=== PATIENT | male | born 1960 | race Caucasian/White ===

== ENCOUNTER → 2016-06-02 | Outpatient (CLI) | payer MEDICAID | LOC: MW.CHFP 15:14 | PROVIDERS: ATTEND Emergency Medicine | DX: M54.9 Dorsalgia, unspecified (principal) | CPT/HCPCS: 81001 ==

== ENCOUNTER → 2016-06-27 | Outpatient (CLI) | payer MEDICAID ==
[2016-06-27 09:01] LABS: CHLORIDE,CL 107 mmol/L (98-110); SODIUM,NA 140 mmol/L (136-146)
== END | disposition home or self-care (01) ==
LOC: MW.CHFP 08:19
PROVIDERS: ATTEND Emergency Medicine
DX: I10 Essential (primary) hypertension (principal); E11.69 Type 2 diabetes mellitus with other specified complication; E78.5 Hyperlipidemia, unspecified; E11.9 Type 2 diabetes mellitus without complications; Z79.4 Long term (current) use of insulin
CPT/HCPCS: 36415; 80048; 83036

== ENCOUNTER 2017-07-05 21:16 | Emergency (ER) | payer MEDICAID ==
[2017-07-05] MEDS ORDERED: Sodium Chloride 0.9% 1,000 ML IV ONE (21:33)
--- NOTE | 2017-07-05 21:33 | EDM.PDOC ---
ED HPI GENERAL MEDICAL PROBLEM - General Chief Complaint: Cardiovascular Problem Stated Complaint: DIZZY/LIGHTHEADED Time Seen by Provider: 07/05/17 21:28 - History of Present Illness INITIAL COMMENTS - FREE TEXT/NARRATIVE: HISTORY AND PHYSICAL: History of present illness: Patient 56-year-old male presents with a concern of dizziness is somewhat vague at this off-and-on since last Sunday he has a scheduled appointment doesn't feel he could wait he denies chest pain shortness of breath palpitations or other concern. Review of systems: As per history of present illness and below otherwise all systems reviewed and negative. Past medical history: As per history of present illness and as reviewed below otherwise noncontributory. Surgical history: As per history of present illness and as reviewed below otherwise noncontributory. Social history: No reported history of drug or alcohol abuse. Family history: As per history of present illness and as reviewed below otherwise noncontributory. Physical exam: HEENT: Atraumatic, normocephalic, pupils reactive, negative for conjunctival pallor or scleral icterus, mucous membranes moist, throat clear, neck supple, nontender, trachea midline. Lungs: Clear to auscultation, breath sounds equal bilaterally, chest nontender. Heart: S1S2, regular, negative for clicks, rubs, or JVD. Abdomen: Soft, nondistended, nontender. Negative for masses or hepatosplenomegaly. Negative for costovertebral tenderness. Pelvis: Stable nontender. Genitourinary: Deferred. Rectal: Deferred. Extremities: Atraumatic, negative for cords or calf pain. Neurovascular unremarkable. Neuro: Awake, alert, oriented. Cranial nerves II through XII unremarkable. Cerebellum unremarkable. Motor and sensory unremarkable throughout. Exam nonfocal. Diagnostics: CBC CMP PT/INR troponin chest x-ray EKG CT brain orthostatic vital signs Therapeutics: Saline 1 L bolus Impression: # 1 intermittent dizziness etiology determined Definitive disposition and diagnosis as appropriate pending reevaluation and review of above. - Related Data Allergies Allergy/AdvReac Type Severity Reaction Status Date / Time No Known Allergies Allergy Verified 07/05/17 21:29 Home Meds: Home Meds Insulin Glarg,Human.Rec.Analog [LantUS] 40 unit SUBCUT BEDTIME 09/27/13 [History ] Novalog Insulin 1 unit SQ ASDIRECTED 10/25/14 [History] Cholestyramine/Sucrose [Cholestyramine Packet] 4 gm PO DAILY 11/05/15 [History] Mesalamine [Lialda] 4 tab PO DAILY 03/19/16 [History] Past Medical History HEENT History: Reports: None Cardiovascular History: Reports: Heart Murmur, High Cholesterol Gastrointestinal History: Reports: Other (See Below) Other Gastrointestinal History: ulcerative colitis, c diff Endocrine/Metabolic History: Reports: Diabetes, Type II - Infectious Disease History Infectious Disease History: Reports: C-Difficile, Chicken Pox - Past Surgical History HEENT Surgical History: Reports: Naso-Sinus Surgery, Tonsillectomy Social & Family History - Family History Family Medical History: Noncontributory Cardiac: Reports: High Cholesterol, Hypertension, [place] Endocrine/Metabolic: Reports: Diabetes, type II - Tobacco Use Smoking Status *Q: Former Smoker Years of Tobacco use: 15 Used Tobacco, but Quit: Yes Month/Year Tobacco Last Used: 120 Second Hand Smoke Exposure: No - Caffeine Use Caffeine Use: Reports: Coffee, Tea Caffeine Use Comment: 2-3 cups/day - Alcohol Use Days Per Week of Alcohol Use: 0 - Recreational Drug Use Recreational Drug Use: No Drug Use in Last 12 Months: No Recreational Drug Type: Reports: Marijuana/Hashish ED ROS GENERAL - Review of Systems Review Of Systems: ROS reveals no pertinent complaints other than HPI. ED EXAM, GENERAL - Physical Exam Exam: See Below (The dictation) Course - Vital Signs Last Recorded V/S: Last Vital Signs Temp 37.3 C 07/05/17 21:29 Pulse 104 H 07/05/17 21:29 Resp 18 07/05/17 21:29 BP 140/99 H 07/05/17 21:29 Pulse Ox 98 07/05/17 21:29 - Orders/Labs/Meds Orders: Active Orders 24 hr Category Date Time Status EKG Documentation Completion [RC] STAT Care 07/05/17 21:28 Active Pulse Oximetry [RC] ASDIRECTED Care 07/05/17 21:28 Active Chest 1V Frontal [CR] Stat Exams 07/05/17 21:29 Taken Head wo Cont [CT] Stat Exams 07/05/17 21:31 Taken DRUG SCREEN, URINE [URCHEM] Stat Lab 07/05/17 21:10 Ordered Labs: Laboratory Tests 07/05/17 07/05/17 07/05/17 Range/Units 21:10 21:38 21:38 WBC 6.93 (4.0-11.0) K/uL RBC 5.12 (4.50-5.90) M/uL Hgb 15.1 (13.0-17.0) g/dL Hct 43.4 (38.0-50.0) % MCV 84.8 (80.0-98.0) fL MCH 29.5 (27.0-32.0) pg MCHC 34.8 (31.0-37.0) g/dL RDW Std Deviation 39.0 (28.0-62.0) fl RDW Coeff of Christina 13 (11.0-15.0) % Plt Count 199 (150-400) K/uL MPV 10.00 (7.40-12.00) fL Neut % (Auto) 55.1 (48.0-80.0) % Lymph % (Auto) 29.9 (16.0-40.0) % Galax % (Auto) 11.8 (0.0-15.0) % Eos % (Auto) 2.9 (0.0-7.0) % Baso % (Auto) 0.3 (0.0-1.5) % Neut # (Auto) 3.8 (1.4-5.7) K/uL Lymph # (Auto) 2.1 (0.6-2.4) K/uL Galax # (Auto) 0.8 (0.0-0.8) K/uL Eos # (Auto) 0.2 (0.0-0.7) K/uL Baso # (Auto) 0.0 (0.0-0.1) K/uL Nucleated RBC % 0.0 /100WBC Nucleated RBCs # 0 K/uL INR 1.00 Sodium (136-148) mmol/L Potassium (3.5-5.1) mmol/L Chloride (98-107) mmol/L Carbon Dioxide (21.0-32.0) mmol/L BUN (7.0-18.0) mg/dL Creatinine (0.8-1.3) mg/dL Est Cr Clr Drug Dosing mL/min Estimated GFR (MDRD) ml/min Glucose (74-106) mg/dL Calcium (8.5-10.1) mg/dL Total Bilirubin (0.2-1.0) mg/dL AST (15-37) IU/L ALT (14-63) IU/L Alkaline Phosphatase (46-116) U/L Troponin I (0.000-0.056) ng/mL Total Protein (6.4-8.2) g/dL Albumin (3.4-5.0) g/dL Globulin (2.0-3.5) g/dL Albumin/Globulin Ratio (1.3-2.8) Urine Opiates Screen NEGATIVE (NEGATIVE) Ur Oxycodone Screen NEGATIVE (NEGATIVE) Urine Methadone Screen NEGATIVE (NEGATIVE) Ur Barbiturates Screen NEGATIVE (NEGATIVE) Ur Phencyclidine Scrn NEGATIVE (NEGATIVE) Ur Amphetamine Screen NEGATIVE (NEGATIVE) U Methamphetamines Scrn NEGATIVE (NEGATIVE) U Benzodiazepines Scrn NEGATIVE (NEGATIVE) U Cocaine Metab Screen NEGATIVE (NEGATIVE) U Marijuana (THC) Screen NEGATIVE (NEGATIVE) 07/05/17 Range/Units 21:38 WBC (4.0-11.0) K/uL RBC (4.50-5.90) M/uL Hgb (13.0-17.0) g/dL Hct (38.0-50.0) % MCV (80.0-98.0) fL MCH (27.0-32.0) pg MCHC (31.0-37.0) g/dL RDW Std Deviation (28.0-62.0) fl RDW Coeff of Christina (11.0-15.0) % Plt Count (150-400) K/uL MPV (7.40-12.00) fL Neut % (Auto) (48.0-80.0) % Lymph % (Auto) (16.0-40.0) % Galax % (Auto) (0.0-15.0) % Eos % (Auto) (0.0-7.0) % Baso % (Auto) (0.0-1.5) % Neut # (Auto) (1.4-5.7) K/uL Lymph # (Auto) (0.6-2.4) K/uL Galax # (Auto) (0.0-0.8) K/uL Eos # (Auto) (0.0-0.7) K/uL Baso # (Auto) (0.0-0.1) K/uL Nucleated RBC % /100WBC Nucleated RBCs # K/uL INR Sodium 142 (136-148) mmol/L Potassium 3.6 (3.5-5.1) mmol/L Chloride 106 (98-107) mmol/L Carbon Dioxide 24.8 (21.0-32.0) mmol/L BUN 19 H (7.0-18.0) mg/dL Creatinine 1.0 (0.8-1.3) mg/dL Est Cr Clr Drug Dosing 76.20 mL/min Estimated GFR (MDRD) > 60.0 ml/min Glucose 92 (74-106) mg/dL Calcium 8.8 (8.5-10.1) mg/dL Total Bilirubin 0.5 (0.2-1.0) mg/dL AST 12 L (15-37) IU/L ALT 26 (14-63) IU/L Alkaline Phosphatase 89 (46-116) U/L Troponin I < 0.050 (0.000-0.056) ng/mL Total Protein 7.2 (6.4-8.2) g/dL Albumin 4.0 (3.4-5.0) g/dL Globulin 3.2 (2.0-3.5) g/dL Albumin/Globulin Ratio 1.3 (1.3-2.8) Urine Opiates Screen (NEGATIVE) Ur Oxycodone Screen (NEGATIVE) Urine Methadone Screen (NEGATIVE) Ur Barbiturates Screen (NEGATIVE) Ur Phencyclidine Scrn (NEGATIVE) Ur Amphetamine Screen (NEGATIVE) U Methamphetamines Scrn (NEGATIVE) U Benzodiazepines Scrn (NEGATIVE) U Cocaine Metab Screen (NEGATIVE) U Marijuana (THC) Screen (NEGATIVE) Meds: Medications Discontinued Medications Generic Name Dose Route Start Last Admin Trade Name Freq PRN Reason Stop Dose Admin Sodium Chloride 1,000 mls @ 999 mls/hr 07/05/17 21:33 07/05/17 21:54 Normal Saline IV 07/05/17 22:33 999 mls/hr STAT ONE Administration Departure - Departure Time of Disposition: 23:22 Disposition: Home, Self-Care 01 Condition: Good Clinical Impression: Dizziness Referrals: Yosvany Waller MD [Primary Care Provider] - Forms: ED Department Discharge Additional Instructions: The following information is given to patients seen in the emergency department who are being discharged to home. This information is to outline your options for follow-up care. We provide all patients seen in our emergency department with a follow-up referral. The need for follow-up, as well as the timing and circumstances, are variable depending upon the specifics of your emergency department visit. If you don't have a primary care physician on staff, we will provide you with a referral. We always advise you to contact your personal physician following an emergency department visit to inform them of the circumstance of the visit and for follow-up with them and/or the need for any referrals to a consulting specialist. The emergency department will also refer you to a specialist when appropriate. This referral assures that you have the opportunity for followup care with a specialist. All of these measure are taken in an effort to provide you with optimal care, which includes your followup. Under all circumstances we always encourage you to contact your private physician who remains a resource for coordinating your care. When calling for followup care, please make the office aware that this follow-up is from your recent emergency room visit. If for any reason you are refused follow-up, please contact the [facility] emergency department at and asked to speak to the emergency department charge nurse. Follow-up primary medical doctor: Schedule routine appointment return as needed as discussed - My Orders Last 24 Hours: My Active Orders 07/05/17 21:10 DRUG SCREEN, URINE [URCHEM] Stat 07/05/17 21:28 EKG Documentation Completion [RC] STAT Pulse Oximetry [RC] ASDIRECTED 07/05/17 21:29 Chest 1V Frontal [CR] Stat 07/05/17 21:31 Head wo Cont [CT] Stat - Assessment/Plan Last 24 Hours: My Active Orders 07/05/17 21:10 DRUG SCREEN, URINE [URCHEM] Stat 07/05/17 21:28 EKG Documentation Completion [RC] STAT Pulse Oximetry [RC] ASDIRECTED 07/05/17 21:29 Chest 1V Frontal [CR] Stat 07/05/17 21:31 Head wo Cont [CT] Stat
[2017-07-05 22:13] LABS: CHLORIDE,CL 106 mmol/L (98-107); SODIUM,NA 142 mmol/L (136-148)
[2017-07-05 23:44] VITALS: BP 140/90
--- NOTE | 2017-07-06 16:05 | CT ---
EXAM DATE: 07/05/17 PATIENT'S AGE: 56 Patient: MELYSSA HALE Facility: [place], [place] Site . Site : 1960 Study: CT Head WO CONT [id number] 10:19:09 PM Ordering Physician: Dirk Cross Final Report: INDICATION: Dizziness for 1 week TECHNIQUE: Head CT without contrast. COMPARISON: November 11, 2015 FINDINGS: CSF spaces: Within normal limits for age. Brain parenchyma: Normal graham-white junction. No sign of mass, hemorrhage, or midline shift. Skull base and calvarium: The visualized paranasal sinuses and mastoid air cells demonstrate no acute or significant findings. The visualized orbits are grossly unremarkable. No skull fractures. IMPRESSION: No acute abnormality. Please note that all CT scans at this facility use dose modulation, iterative reconstruction, and/or weight-based dosing when appropriate to reduce radiation dose to as low as reasonably achievable. Dictated by Jessica Solorzano MD @ Jul 05 2017 10:30PM (Electronic Signature) Report Signed by Proxy. MTDD
--- NOTE | 2017-07-06 16:07 | CR ---
EXAM DATE: 07/05/17 PATIENT'S AGE: 56 Patient: MELYSSA HALE Facility: [place], [place] Site . Site : 1960 Study: XRay Chest [id number]/19/2018 10:25:02 PM Ordering Physician: Dirk Cross Final Report: INDICATION: Lightheaded, dizziness. TECHNIQUE: Chest radiograph 1 view COMPARISON: 05/25/2015. FINDINGS: Cardiovascular and mediastinum: The heart silhouette is normal in size and morphology. The mediastinum is normal in appearance. Lungs and pleural spaces: Both lungs are unremarkable in appearance. No sign of pleural effusion seen. No pneumothorax is identified. Bones and soft tissues: No significant findings. IMPRESSION: 1. No acute cardiopulmonary disease is seen. Dictated by aCrmelo Oleary MD @ 07/05/2017 10:29:12 PM Dictated by: Carmelo Oleary MD @ 07/05/2017 22:29:16 (Electronic Signature) Report Signed by Proxy. [facility] HOSPITALMaycol
== END 2017-07-05 23:41 | disposition home or self-care (01) ==
LOC: MW.ED 21:16
DX: R42 Dizziness and giddiness (principal); E11.9 Type 2 diabetes mellitus without complications; Z79.899 Other long term (current) drug therapy; Z79.4 Long term (current) use of insulin; Z87.891 Personal history of nicotine dependence
CPT/HCPCS: 36415; 70450; 71045; 80053; 80305; 84484; 85025; 85610; 93005; 96360; 99284; J7040; 99283

== ENCOUNTER 2018-06-03 01:35 | Emergency (ER) | payer MEDICAID ==
[2018-06-03] MEDS ORDERED: Sodium Chloride 0.9% 2.5 ML Syringe FLUSH PRN (01:52)
[2018-06-03] MEDS ORDERED: Sodium Chloride 0.9% 10 ML Syringe FLUSH PRN (01:52)
[2018-06-03] MEDS ORDERED: Sodium Chloride 0.9% 1,000 ML IV ONE (01:53)
[2018-06-03] MEDS ORDERED: Ondansetron 4 MG/2 ML SDV IVPUSH ONE (01:54)
--- NOTE | 2018-06-03 01:54 | EDM.PDOC ---
ED HPI GENERAL MEDICAL PROBLEM - General Chief Complaint: Gastrointestinal Problem Stated Complaint: STOMACH PAIN Time Seen by Provider: 06/03/18 01:52 - History of Present Illness INITIAL COMMENTS - FREE TEXT/NARRATIVE: HISTORY AND PHYSICAL: History of present illness: Patient 57-year-old white male presents with a concern of vomiting and generalized weakness suspend 1 day he denies fever chills diarrhea or other concern. Review of systems: As per history of present illness and below otherwise all systems reviewed and negative. Past medical history: As per history of present illness and as reviewed below otherwise noncontributory. Surgical history: As per history of present illness and as reviewed below otherwise noncontributory. Social history: No reported history of drug or alcohol abuse. Family history: As per history of present illness and as reviewed below otherwise noncontributory. Physical exam: HEENT: Atraumatic, normocephalic, pupils reactive, negative for conjunctival pallor or scleral icterus, mucous membranes dry throat clear, neck supple, nontender, trachea midline. Lungs: Clear to auscultation, breath sounds equal bilaterally, chest nontender. Heart: S1S2, regular, negative for clicks, rubs, or JVD. Abdomen: Soft, nondistended, nontender. Negative for masses or hepatosplenomegaly. Negative for costovertebral tenderness. Pelvis: Stable nontender. Genitourinary: Deferred. Rectal: Deferred. Extremities: Atraumatic, negative for cords or calf pain. Neurovascular unremarkable. Neuro: Awake, alert, oriented. Cranial nerves II through XII unremarkable. Cerebellum unremarkable. Motor and sensory unremarkable throughout. Exam nonfocal. Diagnostics: CBC CMP lipase EKG Therapeutics: Saline 1 L bolus Zofran 4 mg IV Impression: #1 vomiting with dehydration Definitive disposition and diagnosis as appropriate pending reevaluation and review of above. epigastric Pain Score (Numeric/FACES): 8 - Related Data Allergies Allergy/AdvReac Type Severity Reaction Status Date / Time animal dander Allergy sneezing/watery Verified 01/22/18 12:08 eyes Rssjpoz-Vet-Per Reductase Allergy Leg Cramps Verified 01/22/18 12:08 Inhibitor Home Meds: Home Meds Insulin Glarg,Human.Rec.Analog [LantUS] 40 unit SUBCUT BEDTIME 09/27/13 [History ] Novalog Insulin 1 unit SQ ASDIRECTED 10/25/14 [History] Mesalamine [Lialda] 2 tab PO DAILY 03/19/16 [History] Cholestyramine (With Sugar) [Cholestyramine Powder] 1 mg PO DAILY 07/05/17 [ History] Enalapril [Vasotec] 2.5 mg PO DAILY 07/05/17 [History] Past Medical History HEENT History: Reports: None Cardiovascular History: Reports: Heart Murmur, High Cholesterol Respiratory History: Reports: None Gastrointestinal History: Reports: Other (See Below) Other Gastrointestinal History: ulcerative colitis, c diff Genitourinary History: Reports: None Musculoskeletal History: Reports: None Neurological History: Reports: None Psychiatric History: Reports: None Endocrine/Metabolic History: Reports: Diabetes, Type II Hematologic History: Reports: None Immunologic History: Reports: None Oncologic (Cancer) History: Reports: None Dermatologic History: Reports: None - Infectious Disease History Infectious Disease History: Reports: C-Difficile, Chicken Pox - Past Surgical History HEENT Surgical History: Reports: Naso-Sinus Surgery, Tonsillectomy Social & Family History - Family History Family Medical History: Noncontributory Cardiac: Reports: High Cholesterol, Hypertension, [place] Endocrine/Metabolic: Reports: Diabetes, type II - Caffeine Use Caffeine Use: Reports: Coffee, Tea Caffeine Use Comment: 2-3 cups/day ED ROS GENERAL - Review of Systems Review Of Systems: ROS reveals no pertinent complaints other than HPI. ED EXAM, GENERAL - Physical Exam Exam: See Below (See dictation) Course - Vital Signs Last Recorded V/S: Last Vital Signs Temp 36.4 C 06/03/18 01:40 Pulse 137 H 06/03/18 01:40 Resp 18 06/03/18 01:40 BP 161/100 H 06/03/18 01:40 Pulse Ox 94 L 06/03/18 01:40 Departure - Departure Time of Disposition: 01:54 Disposition: Home, Self-Care 01 Condition: Good Clinical Impression: Vomiting, Dehydration - Discharge Information Referrals: PCP,None [Primary Care Provider] - Additional Instructions: The following information is given to patients seen in the emergency department who are being discharged to home. This information is to outline your options for follow-up care. We provide all patients seen in our emergency department with a follow-up referral. The need for follow-up, as well as the timing and circumstances, are variable depending upon the specifics of your emergency department visit. If you don't have a primary care physician on staff, we will provide you with a referral. We always advise you to contact your personal physician following an emergency department visit to inform them of the circumstance of the visit and for follow-up with them and/or the need for any referrals to a consulting specialist. The emergency department will also refer you to a specialist when appropriate. This referral assures that you have the opportunity for followup care with a specialist. All of these measure are taken in an effort to provide you with optimal care, which includes your followup. Under all circumstances we always encourage you to contact your private physician who remains a resource for coordinating your care. When calling for followup care, please make the office aware that this follow-up is from your recent emergency room visit. If for any reason you are refused follow-up, please contact the [facility] emergency department at and asked to speak to the emergency department charge nurse. Push fluids clear liquids as directed avoid dairy 72 hours follow-up primary medical doctor as needed as discussed and return as needed as discussed
[2018-06-03 02:52] LABS: CHLORIDE,CL 99 mmol/L (98-107); SODIUM,NA 137 mmol/L (136-148)
[2018-06-03 04:15] VITALS: BP 141/88
== END 2018-06-03 04:15 | disposition home or self-care (01) ==
LOC: MW.ED 01:35
DX: E86.0 Dehydration (principal); E78.00 Pure hypercholesterolemia, unspecified; E11.9 Type 2 diabetes mellitus without complications; Z88.8 Allergy status to other drugs, medicaments and biological substances; Z79.899 Other long term (current) drug therapy; Z79.4 Long term (current) use of insulin; R11.10 Vomiting, unspecified
CPT/HCPCS: 80053; 83690; 85025; 93005; 96360; 99284; J7040; 99283

== ENCOUNTER 2020-03-27 20:48 | Emergency (ER) | payer MEDICAID ==
[2020-03-27 21:05] VITALS: PULSE 90
--- NOTE | 2020-03-27 21:10 | EDM.PDOC ---
ED HPI GENERAL MEDICAL PROBLEM - General Chief Complaint: Upper Extremity Injury/Pain Stated Complaint: RIGHT SHOULDER PROBLEM Time Seen by Provider: 03/27/20 20:59 - History of Present Illness INITIAL COMMENTS - FREE TEXT/NARRATIVE: HISTORY AND PHYSICAL: History of present illness: This is a 59-year-old gentleman who presents ER today complaining of pain to his right shoulder that occurred while he was washing dishes. Patient reports that he had pain to his right shoulder that was acute in onset while he was washing dishes. Patient denies any loss of range of motion however he does have pain when he abducts his shoulder. Patient reports there is some slight bruising in that area that is new as well. Patient has any other symptomatology. Patient has any recent fevers, shakes, chills, nausea, vomiting, diarrhea, dysuria, frequency, urgency. Patient denies any direct trauma other than repetitive use. Review of systems: As per history of present illness and below otherwise all systems reviewed and negative. Past medical history: As per history of present illness and as reviewed below otherwise noncontributory. Surgical history: As per history of present illness and as reviewed below otherwise noncontr ibutory. Social history: No reported history of drug or alcohol abuse. Family history: As per history of present illness and as reviewed below otherwise noncontributory. Physical exam: Constitutional: Patient is oriented to person, place, and time. Appears well- developed and well-nourished. No distress. HEENT: Moist mucous membranes Head: Normocephalic and atraumatic Eyes: Right eye exhibits no discharge. Left eye exhibits no discharge. No scleral icterus Neck: Normal range of motion. No tracheal deviation present. Cardiovascular: Normal rate and regular rhythm. Pulmonary: Effort normal, no respiratory distress. Abdominal: No distention Musculoskeletal: Normal range of motion Neurologic: Alert and oriented to person, place and time. Skin: Powderly, warm and dry. Psychiatric: Normal mood and affect. Behavior is normal. Judgment and thought content normal. Nursing note and vital signs have been reviewed Patient's ER physical exam is significant for tenderness to palpation to his right shoulder. There is no step-off or evidence of deformity/dislocation. Patient does have some slight bruising to the right shoulder. No swelling to the joint or effusion identified. Patient has full range of motion intact however he does experience pain with any abduction of the right shoulder. Patient is neurovascular intact otherwise. Patient has good brachial and radial pulses equal bilaterally. Patient has excellent capillary refill. Patient sensation is intact distally. This patient was seen and evaluated during the 2019 SARS-CoV-2 novel coronavirus pandemic period. Community viral transmission is ongoing at time of this encounter and the emergency department is operating under pandemic response procedures. Assessment and plan: Likely rotator cuff tear from overuse. Patient was instructed to rest, ice, Tylenol/ibuprofen for pain. Patient can follow-up with a primary care physician for long-term management assistance and referrals for orthopedics. At this time there is no indication for x-rays. Reassessment at the time of disposition demonstrates that the patient is in no acute distress. The patient has remained stable throughout the entire ED visit and is without objective evidence for acute process requiring urgent intervention or hospitalization. The patient is stable for discharge, counseling is provided as documented above, discussed symptomatic treatment and specific conditions for return. I have spoken with the patient/caregiver and discussed todays findings, in addition to providing specific details for the plan of care. Questions are answered and there is agreement with the plan. Definitive disposition and diagnosis as appropriate pending reevaluation and review of above. - Related Data Allergies Allergy/AdvReac Type Severity Reaction Status Date / Time No Known Allergies Allergy Verified 03/27/20 20:58 Home Meds: Home Meds Insulin Glarg,Human.Rec.Analog [LantUS] 44 unit SUBCUT BEDTIME 09/27/13 [History] Novalog Insulin 0 unit SQ ASDIRECTED 10/25/14 [History] Cholestyramine (With Sugar) [Cholestyramine Powder] 2 mg PO DAILY 07/05/17 [ History] Enalapril [Vasotec] 2.5 mg PO DAILY 07/05/17 [History] Ibuprofen 600 mg PO Q6HR PRN #30 tablet 03/27/20 [Rx] Mesalamine [Lialda] 2 tab PO DAILY 03/27/20 [History] Rosuvastatin [Crestor] 5 mg PO ASDIRECTED 03/27/20 [History] Past Medical History HEENT History: Reports: None Cardiovascular History: Reports: Heart Murmur, High Cholesterol Respiratory History: Reports: None Gastrointestinal History: Reports: Other (See Below) Other Gastrointestinal History: ulcerative colitis, c diff Genitourinary History: Reports: None Musculoskeletal History: Reports: None Neurological History: Reports: None Psychiatric History: Reports: None Endocrine/Metabolic History: Reports: Diabetes, Type II Hematologic History: Reports: None Immunologic History: Reports: None Oncologic (Cancer) History: Reports: None Dermatologic History: Reports: None - Infectious Disease History Infectious Disease History: Reports: C-Difficile, Chicken Pox - Past Surgical History HEENT Surgical History: Reports: Naso-Sinus Surgery, Tonsillectomy Social & Family History - Family History Family Medical History: No Pertinent Family History Cardiac: Reports: High Cholesterol, Hypertension, [place] Endocrine/Metabolic: Reports: Diabetes, type II - Caffeine Use Caffeine Use: Reports: Coffee, Tea Caffeine Use Comment: 2-3 cups/day Review of Systems - Review of Systems Review Of Systems: See Below ED EXAM, GENERAL - Physical Exam Exam: See Below Course - Vital Signs Last Recorded V/S: Last Vital Signs Temp 97.9 F 03/27/20 21:00 Pulse 90 03/27/20 21:00 Resp 18 03/27/20 21:00 BP 172/111 H 03/27/20 21:00 Pulse Ox 95 03/27/20 21:00 - Orders/Labs/Meds Orders: Active Orders 24 hr Category Date Time Status Ibuprofen [Motrin] Med 03/27/20 21:11 Once 600 mg PO ONETIME ONE Medication Orders Ibuprofen (Motrin) 600 mg PO ONETIME ONE Stop: 03/27/20 21:12 Meds: Medications Generic Name Dose Route Start Last Admin Trade Name Freq PRN Reason Stop Dose Admin Ibuprofen 600 mg 03/27/20 21:11 Motrin PO 03/27/20 21:12 ONETIME ONE Departure - Departure Time of Disposition: 21:07 Disposition: Home, Self-Care 01 Condition: Good Clinical Impression: Right shoulder pain Qualifiers: Chronicity: acute Qualified Code(s): M25.511 - Pain in right shoulder Injury of right rotator cuff Qualifiers: Encounter type: initial encounter Qualified Code(s): S46.001A - Unspecified injury of muscle(s) and tendon(s) of the rotator cuff of right shoulder, initial encounter - Discharge Information Prescriptions: Ibuprofen 600 mg PO Q6HR PRN #30 tablet PRN Reason: Pain Instructions: Shoulder Pain, How to Use Cold Therapy, [id number], Rotator Cuff Tear Referrals: Yosvany Waller MD [Primary Care Provider] - Forms: ED Department Discharge Additional Instructions: You were seen and evaluated in the ER today secondary to pain that you are experiencing in her right shoulder that started today. Your pain appears to be most likely secondary to a injury to your rotator cuff in your right shoulder. At this time, no x-rays are indicated. You can assist healing by resting it and not doing things that cause pain or discomfort to your right shoulder. You take Tylenol and ibuprofen as needed for pain. Please make an appointment to see your doctor in the next week for reevaluation and possible referral as needed. The following information is given to patients seen in the emergency department who are being discharged to home. This information is to outline your options for follow-up care. We provide all patients seen in our emergency department with a follow-up referral. The need for follow-up, as well as the timing and circumstances, are variable depending upon the specifics of your emergency department visit. If you don't have a primary care physician on staff, we will provide you with a referral. We always advise you to contact your personal physician following an emergency department visit to inform them of the circumstance of the visit and for follow-up with them and/or the need for any referrals to a consulting specialist. The emergency department will also refer you to a specialist when appropriate. This referral assures that you have the opportunity for follow-up care with a specialist. All of these measure are taken in an effort to provide you with optimal care, which includes your follow-up. Under all circumstances we always encourage you to contact your private physician who remains a resource for coordinating your care. When calling for follow-up care, please make the office aware that this follow-up is from your recent emergency room visit. If for any reason you are refused follow-up, please contact the [facility] Emergency Department at and asked to speak to the emergency department charge nurse. [facility] - [facility] [address] [place] [id number] [address] Sepsis Event Note (ED) - Evaluation Sepsis Screening Result: No Definite Risk - Focused Exam Vital Signs: Vital Signs Temp Pulse Resp BP Pulse Ox 03/27/20 21:00 97.9 F 90 18 172/111 H 95 - My Orders Last 24 Hours: My Active Orders 03/27/20 21:11 Ibuprofen [Motrin] 600 mg PO ONETIME ONE - Assessment/Plan Last 24 Hours: My Active Orders 03/27/20 21:11 Ibuprofen [Motrin] 600 mg PO ONETIME ONE
[2020-03-27] MEDS: Ibuprofen 600 MG Tab PO ONE (21:11)
[2020-03-27 21:20] VITALS: BP 151/113
== END 2020-03-27 21:18 | disposition home or self-care (01) ==
LOC: MW.ED 20:48
DX: S40.011A Contusion of right shoulder, initial encounter (principal); E78.00 Pure hypercholesterolemia, unspecified; E11.9 Type 2 diabetes mellitus without complications; Z79.4 Long term (current) use of insulin; Z79.899 Other long term (current) drug therapy; X58.XXXA Exposure to other specified factors, initial encounter
CPT/HCPCS: 99283

== ENCOUNTER 2021-01-07 21:51 | Emergency (ER) | payer MEDICAID ==
[2021-01-07] MEDS ORDERED: Sodium Chloride 0.9% 10 ML Syringe FLUSH PRN (22:39)
[2021-01-07] MEDS ORDERED: Sodium Chloride 0.9% 2.5 ML Syringe FLUSH PRN (22:39)
[2021-01-07] MEDS ORDERED: Lactated Ringers 1,000 ML IV ONE (22:41)
--- NOTE | 2021-01-07 22:43 | EDM.PDOC ---
ED HPI GENERAL MEDICAL PROBLEM - General Chief Complaint: General Stated Complaint: FATIGUE, ELEVATED PULSE, SINUS PRESSURE Time Seen by Provider: 01/07/21 22:27 - History of Present Illness INITIAL COMMENTS - FREE TEXT/NARRATIVE: Patient is a 60-year-old male presenting with nasal congestion rhinorrhea fatigue and a minimal wet cough the symptoms all started this morning. No fever no abdominal pain. Diarrhea is improving. He is currently on a prolonged vancomycin taper for C. difficile infection. He notes that his stools are quite dark and has been told that this is secondary to the vancomycin. He has some generalized weakness and lightheadedness with standing. No vertigo. He denies chest pain or shortness of breath but endorses a mild cough. No neck pain or stiffness no headache no myalgias. Patient did complete a Covid vaccination series. He has not yet had his flu shot. He also has a history of diabetes for which he takes insulin. - Related Data Allergies Allergy/AdvReac Type Severity Reaction Status Date / Time animal dander Allergy " positive Verified 01/07/21 22:27 allergy test to cats" Dzcpgvb-APM-EoV Reductase Allergy Body Aches Verified 01/07/21 22:27 Inhibitor [Qwtkdgp-Biz-Psg Reductase Inhibitor] Home Meds: Home Meds Insulin Glarg,Human.Rec.Analog [LantUS] 20 unit SUBCUT BEDTIME 09/27/13 [History] Enalapril [Vasotec] 2.5 mg PO DAILY 07/05/17 [History] Mesalamine [Lialda] 4 tab PO WITHDINNER 03/27/20 [History] Cholestyramine (With Sugar) [Cholestyramine Powder] 1 dose PO DAILY 12/20/20 [History] Digestive 8/L.acidoph/Pectin [Digestive Enzymes Tablet] 1 tab PO DAILY 12/20/20 [History] Flaxseed 2 tsp PO DAILY 12/20/20 [History] Insulin Aspart [Novolog Flexpen] 1 injection SUBCUT ASDIRECTED 12/20/20 [History] Ketoconazole 1 applic .ROUTE WEEKLY 12/20/20 [History] Multivitamin 1 tab PO DAILY 12/20/20 [History] Pitavastatin Calcium [Livalo] 4 mg PO DAILY 12/20/20 [History] Psyllium Husk/Sweetleaf [Konsyl Daily Fiber Powder] 1 tsp PO DAILY 12/20/20 [History] Saccharomyces Boulardii [Florastor] 2 tab PO DAILY 12/20/20 [History] Past Medical History HEENT History: Reports: Allergic Rhinitis, Other (See Below) Other HEENT History: wears glasses Cardiovascular History: Reports: Heart Murmur, High Cholesterol Other Cardiovascular History: murmur as a child Respiratory History: Reports: None Gastrointestinal History: Reports: Chronic Diarrhea, Other (See Below) Other Gastrointestinal History: ulcerative colitis, c diff, 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 c diff Genitourinary History: Reports: None Musculoskeletal History: Reports: Other (See Below) Other Musculoskeletal History: necrotic bone in right hand Neurological History: Reports: None Psychiatric History: Reports: None Endocrine/Metabolic History: Reports: Diabetes, Type II Hematologic History: Reports: None Immunologic History: Reports: None Oncologic (Cancer) History: Reports: None Dermatologic History: Reports: None - Infectious Disease History Infectious Disease History: Reports: C-Difficile, Chicken Pox - Past Surgical History Head Surgeries/Procedures: Reports: None HEENT Surgical History: Reports: Naso-Sinus Surgery, Tonsillectomy Other HEENT Surgeries/Procedures: 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 Cardiovascular Surgical History: Reports: None Respiratory Surgical History: Reports: None GI Surgical History: Reports: Colonoscopy, Hernia, Inguinal Other GI Surgeries/Procedures: ulcerative colitis, inguinal hernia repairs 2 on left 1 on right Male Surgical History: Reports: None Endocrine Surgical History: Reports: None Neurological Surgical History: Reports: None Musculoskeletal Surgical History: Reports: None Dermatological Surgical History: Reports: None Social & Family History - Family History Family Medical History: No Pertinent Family History Cardiac: Reports: High Cholesterol, Hypertension, [place] Endocrine/Metabolic: Reports: Diabetes, type II - Tobacco Use Tobacco Use Status *Q: Never Tobacco User Second Hand Smoke Exposure: No - Caffeine Use Caffeine Use: Reports: Coffee, Tea Caffeine Use Comment: 2-3 cups/day - Recreational Drug Use Recreational Drug Use: No ED ROS GENERAL - Review of Systems Review Of Systems: See Below Free Text/Narrative/Comment: General: No fever. Skin: No rash. Eyes: No vision problems. ENT: Per HPI Neck: No neck stiffness. Respiratory: No shortness of breath. Cardiac: No chest pain. Gastrointestinal: No nausea, vomiting or abdominal pain. Urinary: No dysuria. Musculoskeletal: No myalgias/arthralgias. Neurologic: No headache. ED EXAM, GENERAL - Physical Exam Exam: See Below Free Text/Narrative:: General Appearance: No acute distress, appears comfortable Skin: No rash HEENT: Normocephalic/atraumatic, sclera anicteric, mucous membranes moist Neck: Normal range of motion Chest and Lungs: Bilateral breath sounds, clear to auscultation Cardiovascular: Tachycardic rate regular rhythm intact distal perfusion, no murmur Abdomen: Soft, non-tender Musculoskeletal: No edema or tenderness Neurologic: Awake, alert, no obvious deficits, moving all extremities Psychiatric: Appropriate, cooperative #1 Interpretation EKG Date: 01/07/21 Time: 23:00 EKG Interpretation Comments: Sinus tachycardia rate of 115 unremarkable axis and intervals no acute ischemia Course - Vital Signs Last Recorded V/S: Last Vital Signs Temp 101.2 F H 01/07/21 23:37 Pulse 127 H 01/07/21 23:17 Resp 19 01/07/21 23:17 BP 150/117 H 01/07/21 23:17 Pulse Ox 95 01/07/21 23:17 - Orders/Labs/Meds Orders: Active Orders 24 hr Category Date Time Status Sodium Chloride 0.9% [Saline Flush] Med 01/07/21 22:39 Active 10 ml FLUSH ASDIRECTED PRN Sodium Chloride 0.9% [Saline Flush] Med 01/07/21 22:39 Active 2.5 ml FLUSH ASDIRECTED PRN Isolation [COMM] Routine Oth 01/07/21 22:39 Active Saline Lock Insert [OM.PC] Stat Oth 01/07/21 22:39 Ordered Medication Orders Sodium Chloride (Sodium Chloride 0.9% 10 Ml Syringe) 10 ml FLUSH ASDIRECTED PRN PRN Reason: Keep Vein Open Last Admin: 01/07/21 23:38 Dose: 10 ml Documented by: CHUCKIE Sodium Chloride (Sodium Chloride 0.9% 2.5 Ml Syringe) 2.5 ml FLUSH ASDIRECTED PRN PRN Reason: Keep Vein Open Last Admin: 01/07/21 23:38 Dose: 2.5 ml Documented by: CHUCKIE Labs: Laboratory Tests 01/07/21 01/07/21 01/07/21 Range/Units 22:45 22:55 22:55 WBC 10.33 (4.0-11.0) K/uL RBC 5.26 (4.50-5.90) M/uL Hgb 15.5 (13.0-17.0) g/dL Hct 44.9 (38.0-50.0) % MCV 85.4 (80.0-98.0) fL MCH 29.5 (27.0-32.0) pg MCHC 34.5 (31.0-37.0) g/dL RDW Std Deviation 41.3 (28.0-62.0) fl RDW Coeff of Christina 13 (11.0-15.0) % Plt Count 251 (150-400) K/uL MPV 9.70 (7.40-12.00) fL Neut % (Auto) 79.8 (48.0-80.0) % Lymph % (Auto) 8.5 L (16.0-40.0) % Cook % (Auto) 10.2 (0.0-15.0) % Eos % (Auto) 1.4 (0.0-7.0) % Baso % (Auto) 0.1 (0.0-1.5) % Neut # (Auto) 8.3 H (1.4-5.7) K/uL Lymph # (Auto) 0.9 (0.6-2.4) K/uL Cook # (Auto) 1.1 H (0.0-0.8) K/uL Eos # (Auto) 0.1 (0.0-0.7) K/uL Baso # (Auto) 0.0 (0.0-0.1) K/uL Nucleated RBC % 0.0 /100WBC Nucleated RBCs # 0 K/uL Sodium 138 (136-148) mmol/L Potassium 4.1 (3.5-5.1) mmol/L Chloride 99 (98-107) mmol/L Carbon Dioxide 29.8 (21.0-32.0) mmol/L BUN 12 (7.0-18.0) mg/dL Creatinine 0.9 (0.8-1.3) mg/dL Est Cr Clr Drug Dosing 80.18 mL/min Estimated GFR (MDRD) > 60.0 ml/min Glucose 155 H (74-106) mg/dL Lactic Acid (0.4-2.0) mmol/L Calcium 8.9 (8.5-10.1) mg/dL Magnesium 2.2 (1.8-2.4) mg/dL Total Bilirubin 0.8 (0.2-1.0) mg/dL AST 17 (15-37) IU/L ALT 73 H (14-63) IU/L Alkaline Phosphatase 132 H (46-116) U/L Total Protein 8.1 (6.4-8.2) g/dL Albumin 3.9 (3.4-5.0) g/dL Globulin 4.2 H (2.6-4.0) g/dL Albumin/Globulin Ratio 0.9 (0.9-1.6) Influenza Type A RNA NEGATIVE (NEGATIVE) Influenza Type B RNA NEGATIVE (NEGATIVE) SARS-CoV-2 RNA (DEIRDRE) NEGATIVE (NEGATIVE) 01/07/21 Range/Units 22:55 WBC (4.0-11.0) K/uL RBC (4.50-5.90) M/uL Hgb (13.0-17.0) g/dL Hct (38.0-50.0) % MCV (80.0-98.0) fL MCH (27.0-32.0) pg MCHC (31.0-37.0) g/dL RDW Std Deviation (28.0-62.0) fl RDW Coeff of Christina (11.0-15.0) % Plt Count (150-400) K/uL MPV (7.40-12.00) fL Neut % (Auto) (48.0-80.0) % Lymph % (Auto) (16.0-40.0) % Cook % (Auto) (0.0-15.0) % Eos % (Auto) (0.0-7.0) % Baso % (Auto) (0.0-1.5) % Neut # (Auto) (1.4-5.7) K/uL Lymph # (Auto) (0.6-2.4) K/uL Cook # (Auto) (0.0-0.8) K/uL Eos # (Auto) (0.0-0.7) K/uL Baso # (Auto) (0.0-0.1) K/uL Nucleated RBC % /100WBC Nucleated RBCs # K/uL Sodium (136-148) mmol/L Potassium (3.5-5.1) mmol/L Chloride (98-107) mmol/L Carbon Dioxide (21.0-32.0) mmol/L BUN (7.0-18.0) mg/dL Creatinine (0.8-1.3) mg/dL Est Cr Clr Drug Dosing mL/min Estimated GFR (MDRD) ml/min Glucose (74-106) mg/dL Lactic Acid 1.0 (0.4-2.0) mmol/L Calcium (8.5-10.1) mg/dL Magnesium (1.8-2.4) mg/dL Total Bilirubin (0.2-1.0) mg/dL AST (15-37) IU/L ALT (14-63) IU/L Alkaline Phosphatase (46-116) U/L Total Protein (6.4-8.2) g/dL Albumin (3.4-5.0) g/dL Globulin (2.6-4.0) g/dL Albumin/Globulin Ratio (0.9-1.6) Influenza Type A RNA (NEGATIVE) Influenza Type B RNA (NEGATIVE) SARS-CoV-2 RNA (DEIRDRE) (NEGATIVE) Meds: Medications Generic Name Dose Route Start Last Admin Trade Name Dane PRN Reason Stop Dose Admin Sodium Chloride 10 ml 01/07/21 22:39 01/07/21 23:38 Sodium Chloride 0.9% 10 Ml Syringe FLUSH 10 ml ASDIRECTED PRN Administration Keep Vein Open Sodium Chloride 2.5 ml 01/07/21 22:39 01/07/21 23:38 Sodium Chloride 0.9% 2.5 Ml Syringe FLUSH 2.5 ml ASDIRECTED PRN Administration Keep Vein Open Discontinued Medications Generic Name Dose Route Start Last Admin Trade Name Freq PRN Reason Stop Dose Admin Acetaminophen 650 mg 01/07/21 23:33 01/07/21 23:37 Acetaminophen 325 Mg Tab PO 01/07/21 23:34 650 mg NOW ONE Administration Lactated Ringer's 1,000 mls @ 999 mls/hr 01/07/21 22:41 01/07/21 23:37 Ringers, Lactated IV 01/07/21 23:41 999 mls/hr .BOLUS ONE Administration Departure - Departure Time of Disposition: 23:59 Disposition: Home, Self-Care 01 Condition: Good Clinical Impression: Viral syndrome - Discharge Information *PRESCRIPTION DRUG MONITORING PROGRAM REVIEWED*: Not Applicable *COPY OF PRESCRIPTION DRUG MONITORING REPORT IN PATIENT GERALDO: Not Applicable Instructions: Viral Illness, Adult Referrals: Yosvany Waller MD [Primary Care Provider] - Forms: ED Department Discharge Additional Instructions: Your labs today were good and your Covid and influenza swabs were normal. I hope expectation is that you have a xfy-ll-lbw-mill viral infection that will run its course over the next few days. I encourage you to follow-up with your primary care doctor. Please continue to take your vancomycin as prescribed. If you have any worsening of your symptoms or new symptoms that concern you please call your doctor or return to the ER. The following information is given to patients seen in the emergency department who are being discharged to home. This information is to outline your options for follow-up care. We provide all patients seen in our emergency department with a follow-up referral. The need for follow-up, as well as the timing and circumstances, are variable depending upon the specifics of your emergency department visit. If you don't have a primary care physician on staff, we will provide you with a referral. We always advise you to contact your personal physician following an emergency department visit to inform them of the circumstance of the visit and for follow-up with them and/or the need for any referrals to a consulting specialist. The emergency department will also refer you to a specialist when appropriate. This referral assures that you have the opportunity for follow-up care with a specialist. All of these measure are taken in an effort to provide you with optimal care, which includes your follow-up. Under all circumstances we always encourage you to contact your private physician who remains a resource for coordinating your care. When calling for follow-up care, please make the office aware that this follow-up is from your recent emergency room visit. If for any reason you are refused follow-up, please contact the [facility] Emergency Department at and asked to speak to the emergency department charge nurse. Sepsis Event Note (ED) - Evaluation Sepsis Screening Result: No Definite Risk - Focused Exam Vital Signs: Vital Signs Temp Temp Pulse Resp BP Pulse Ox 01/07/21 23:37 101.2 F H 01/07/21 23:17 101.2 F H 127 H 19 150/117 H 95 01/07/21 22:21 99.1 F 128 H 14 173/111 H 94 L - My Orders Last 24 Hours: My Active Orders 01/07/21 22:39 Sodium Chloride 0.9% [Saline Flush] 10 ml FLUSH ASDIRECTED PRN Sodium Chloride 0.9% [Saline Flush] 2.5 ml FLUSH ASDIRECTED PRN Isolation [COMM] Routine Saline Lock Insert [OM.PC] Stat - Assessment/Plan Last 24 Hours: My Active Orders 01/07/21 22:39 Sodium Chloride 0.9% [Saline Flush] 10 ml FLUSH ASDIRECTED PRN Sodium Chloride 0.9% [Saline Flush] 2.5 ml FLUSH ASDIRECTED PRN Isolation [COMM] Routine Saline Lock Insert [OM.PC] Stat Assessment:: 60-year-old male presenting with signs and symptoms that are most consistent with a viral syndrome but with significant tachycardia. Given the sepsis needs to be considered influenza needs to be considered pneumonia patients to be considered Covid needs to be considered. No findings over suggest meningitis or encephalitis and his abdominal exam is benign. Dehydration related to the C. difficile is possible but patient reports he has been doing his best to stay hydrated and his diarrhea is actually improving. CBC CMP lactic acid EKG to ensure sinus tachycardia chest x-ray flu and Covid swabs are all pending IV fluid is been ordered. 2358: Patient's labs are all completely normal white count normal lactate normal chemistry unremarkable flu and Covid swabs negative chest x-ray clear. Patient's heart rate is improving with IV fluids. He feels well at this time he was given Tylenol for his fever. He likely has a viral respiratory infection. Given his reassuring work-up here the fact that his heart rate is responded to fluid I think home with return precautions is reasonable patient comfortable with discharge return precautions discussed and understood.
[2021-01-07 23:27] LABS: CORONAVIRUS COVID-19 NAA NEGATIVE (NEGATIVE); INFLUENZA A NAA NEGATIVE (NEGATIVE); INFLUENZA B NAA NEGATIVE (NEGATIVE)
[2021-01-07] MEDS ORDERED: Acetaminophen 325 MG Tab PO ONE (23:33)
[2021-01-07 23:38] LABS: BLOOD UREA NITROGEN,BUN 12 mg/dL (7.0-18.0); CARBON DIOXIDE,CO2 29.8 mmol/L (21.0-32.0); CHLORIDE,CL 99 mmol/L (98-107); GLUCOSE RANDOM 155 mg/dL (74-106); POTASSIUM,K 4.1 mmol/L (3.5-5.1); SODIUM,NA 138 mmol/L (136-148)
--- NOTE | 2021-01-07 23:48 | CR ---
INDICATION: Cough TECHNIQUE: Chest radiograph 1 view on 2 films COMPARISON: 07/05/2017 FINDINGS: Mediastinum: The mediastinum is normal in appearance. The heart silhouette is normal in size and morphology. Lung: Both lungs are unremarkable in appearance with small lung volumes. No sign of pleural effusion seen. No pneumothorax is identified. Bone and Soft tissue: Unremarkable for age. IMPRESSION: 1. No acute cardiopulmonary disease is seen. Dictated by: Jese Dye MD @ 01/07/2021 23:46:54 (Electronically Signed)
[2021-01-08 00:51] VITALS: BP 140/74; PULSE 103
== END 2021-01-08 00:50 | disposition home or self-care (01) ==
LOC: MW.ED 21:51
DX: B34.9 Viral infection, unspecified (principal); E78.00 Pure hypercholesterolemia, unspecified; E11.9 Type 2 diabetes mellitus without complications; Z79.4 Long term (current) use of insulin; Z91.09 Other allergy status, other than to drugs and biological substances; Z88.8 Allergy status to other drugs, medicaments and biological substances; Z79.899 Other long term (current) drug therapy; Z20.822 Contact with and (suspected) exposure to COVID-19
CPT/HCPCS: 0240U; 36415; 71045; 80053; 83605; 83735; 85025; 93005; 99284; A9270; J7120

== ENCOUNTER 2021-04-06 09:20 | Emergency (ER) | payer BC, MEDICAID ==
[2021-04-06] MEDS ORDERED: Sodium Chloride 0.9% 2.5 ML Syringe FLUSH PRN (09:44)
[2021-04-06] MEDS ORDERED: Sodium Chloride 0.9% 10 ML Syringe FLUSH PRN (09:44)
[2021-04-06 10:39] LABS: BLOOD UREA NITROGEN,BUN 19 mg/dL (7.0-18.0); CARBON DIOXIDE,CO2 25.8 mmol/L (21.0-32.0); CHLORIDE,CL 104 mmol/L (98-107); GLUCOSE RANDOM 177 mg/dL (74-106); POTASSIUM,K 4.1 mmol/L (3.5-5.1); SODIUM,NA 141 mmol/L (136-148)
[2021-04-06] MEDS ORDERED: Meclizine 25 MG Tab PO ONE (10:57)
[2021-04-06] MEDS ORDERED: Ondansetron 4 MG/2 ML SDV IVPUSH ONE (10:57)
[2021-04-06] MEDS ORDERED: Ketorolac 30 MG/ML SDV IVPUSH ONE (12:25)
[2021-04-06] MEDS ORDERED: Sodium Chloride 0.9% 1,000 ML IV ONE (12:47)
[2021-04-06] MEDS ORDERED: Metoclopramide 10 MG/2 ML SDV IV ONE (13:56)
[2021-04-06 15:17] VITALS: BP 153/98
[2021-04-06 15:32] VITALS: PULSE 113
== END 2021-04-06 16:02 | disposition home or self-care (01) ==
LOC: MW.ED 09:20
DX: R42 Dizziness and giddiness (principal); R51.9 Headache, unspecified; E78.00 Pure hypercholesterolemia, unspecified; E11.9 Type 2 diabetes mellitus without complications; Z87.891 Personal history of nicotine dependence; Z88.8 Allergy status to other drugs, medicaments and biological substances; Z91.048 Other nonmedicinal substance allergy status; Z79.4 Long term (current) use of insulin; Z79.899 Other long term (current) drug therapy; Z20.822 Contact with and (suspected) exposure to COVID-19
CPT/HCPCS: 36415; 70450; 71045; 80053; 81003; 84484; 85025; 87635; 93005; 96374; 96375; 99284; A9270; J1885; J2405; J2765; J7030; U0002

== ENCOUNTER 2021-11-17 16:11 | Emergency (ER) | payer MEDICAID ==
[2021-11-17 17:35] VITALS: BP 132/68; PULSE 79
== END 2021-11-17 16:46 | disposition home or self-care (01) ==
LOC: MW.ED 16:11
DX: R04.0 Epistaxis (principal); E11.9 Type 2 diabetes mellitus without complications; E78.00 Pure hypercholesterolemia, unspecified; Z79.899 Other long term (current) drug therapy
CPT/HCPCS: 30901; 99282; 99283

== ENCOUNTER 2022-07-19 01:50 | Emergency (ER) | payer MEDICAID ==
[2022-07-19 02:50] VITALS: BP 177/101; PULSE 104
== END 2022-07-19 02:25 | disposition home or self-care (01) ==
LOC: MW.ED 01:50
DX: I10 Essential (primary) hypertension (principal); E78.00 Pure hypercholesterolemia, unspecified; E11.9 Type 2 diabetes mellitus without complications; Z88.6 Allergy status to analgesic agent; Z91.048 Other nonmedicinal substance allergy status; Z79.899 Other long term (current) drug therapy; Z79.4 Long term (current) use of insulin
CPT/HCPCS: 99283

== ENCOUNTER 2022-11-25 13:13 | Emergency (ER) | payer MEDICAID ==
[2022-11-25 14:08] VITALS: BP 151/81; PULSE 87
== END 2022-11-25 14:07 | disposition home or self-care (01) ==
LOC: MW.ED 13:13
DX: Z76.0 Encounter for issue of repeat prescription (principal); E11.9 Type 2 diabetes mellitus without complications; K86.89 Other specified diseases of pancreas; E78.00 Pure hypercholesterolemia, unspecified; Z91.048 Other nonmedicinal substance allergy status; Z88.8 Allergy status to other drugs, medicaments and biological substances; Z79.4 Long term (current) use of insulin; Z79.899 Other long term (current) drug therapy
CPT/HCPCS: 99281; 99283